=== PATIENT | male | born 1985 ===

== ENCOUNTER 2020-05-04 08:54 | Outpatient (REF) | payer SELFPAY ==
[2020-05-09 21:52] LABS: SARS-CoV-2 RNA Undetected (Undetected); SARS-CoV-2 Specimen Source Nasal
== END 2020-05-04 09:14 ==
LOC: NCHCN 08:54
PROVIDERS: Visit Provider Internal Medicine
DX: Z11.59 Encounter for screening for other viral diseases (principal)
CPT/HCPCS: U0003